=== PATIENT | female | born 1995 | race American Indian/Alaskan Native ===

== ENCOUNTER 2017-11-07 10:06 | Emergency (ER) | payer BC, MEDICAID ==
[2017-11-07 10:27] VITALS: BP 106/82
--- NOTE | 2017-11-07 11:51 | Emergency Department Report ---
Chief Complaint: Vaginal Bleeding Stated Complaint: vaginal bleeding Time Seen by Provider: 11/07/17 11:31 - HPI History of Present Illness: Patient is a 22-year-old black female states she has some mild spotting for the last 2 days. Patient states she had a 5 day menses 2 weeks ago. Patient states there is no pain is no dysuria she states that she is on control. Patient states last month she thought she may have been took a test was negative. Patient did not take prior to tests at this time. Patient is here wanting a test performed in the emergency department. - ROS Review of Systems: All other systems are reviewed and are negative - Exam Vital Signs: Vital Signs 11/07/17 10:24 Temperature 98.1 F Pulse Rate 62 Respiratory 16 Rate Blood Pressure 106/82 O2 Sat by Pulse 100 Oximetry Physical Exam: Focused physical exam patient's heart and lungs are within normal limits. Abdomen is soft nontender MSE screening note: Focused history and physical exam performed. Due to findings the following was ordered: ED Medical Decision Making - Medical Decision Making Patient is a non-medical emergency at this time. Patient was urged to take over -the-counter test and also follow up with gynecology for her abnormal menses and symptoms. Patient opted to not painful 150 co-pay for a nonmedical emergency. ED Disposition for MSE Clinical Impression: Irregular menses Disposition: MED SCREENING EXAM-LEFT Is pt being admited?: No Does the pt Need Aspirin: No Condition: Stable Referrals: SEDA SHAW MD [Staff Physician] - 3-5 Days
== END 2017-11-07 12:15 | disposition left against medical advice (07) ==
LOC: ED 10:06
DX: N92.6 Irregular menstruation, unspecified (principal); N93.9 Abnormal uterine and vaginal bleeding, unspecified; Z53.21 Procedure and treatment not carried out due to patient leaving prior to being seen by health care provider